=== PATIENT | male | born 1960 | race Caucasian/White ===

== ENCOUNTER 2017-10-17 10:30 | Emergency (ER) | payer SELFPAY ==
[~2017-10-17] VITALS: Ht 188 cm; Wt 100.0 kg
[~2017-10-17 10:30] MED LIST: CYCL-36 PO; DICL50 PO; HYDR-3533 PO
[2017-10-17 10:32] VITALS: BP 133/67; PULSE 81; RESP 14; TEMP 101.2; O2SAT 95
[2017-10-17 11:03] VITALS: BP 105/55; PULSE 56; RESP 18; TEMP 99.8; O2SAT 95
[2017-10-17] MEDS ORDERED: ACETAMINOPHEN 325 MG TAB PO ONE (11:15)
--- NOTE | 2017-10-17 11:20 | PD ---
HPI Chief Complaint: Cold / Flu Symptoms Time Seen by Provider: 11:05 Travel History International Travel<30 days: No Contact w/Intl Traveler<30days: No Traveled to known affect area: No History of Present Illness HPI 57yo M with no significant PMH presents to the ED with c/o cough, nasal congestion, throat pain, generalized body aches for 3 days. Started having fever today. Denies any chest pain, sob, n/v, abdominal pain, diarrhea, focal weakness or numbness. PFSH Past Medical History Diminished Hearing: Yes Medical other: Yes (BEAVER) Thyroid Disease: Yes ?: Not Social History Alcohol Use: No Tobacco Use: No Substance Use: No Allergies-Medications (Allergen,Severity, Reaction): Coded Allergies: Sulfa (Sulfonamide Antibiotics) (Unverified Allergy, Severe, ITCH, 05/06/17 ) penicillin G (Unverified Allergy, Severe, PASSED OUT, 05/06/17) Reported Meds & Prescriptions Reported Meds & Active Scripts Active Tylenol (Acetaminophen) 325 Mg Tab 650 Mg PO Q6H PRN Tamiflu (Oseltamivir Phosphate) 75 Mg Cap 75 Mg PO BID 5 Days Flexeril (Cyclobenzaprine HCl) 10 Mg Tab 10 Mg PO TID Voltaren (Diclofenac Sodium) 50 Mg Tabec 50 Mg PO TID Lortab 5 mg/325 mg (Hydrocodone/Acetaminophen 5 mg/325 mg) 1 Tab 1-2 Tab PO Q6H Review of Systems Except as stated in HPI: all other systems reviewed are Neg Physical Exam Narrative GENERAL: 57yo M in mild distress. SKIN: Focused skin assessment warm/dry. HEAD: Atraumatic. Normocephalic. EYES: Pupils equal and round. No scleral icterus. No injection or drainage. ENT: Throat: Clear. Uvula midline. No tonsillar exudate. NECK: Trachea midline. No JVD. CARDIOVASCULAR: Regular rate and rhythm. No murmur appreciated. RESPIRATORY: No accessory muscle use. Clear to auscultation. Breath sounds equal bilaterally. GASTROINTESTINAL: Abdomen soft, mild LLQ ttp. No rebound tenderness or guarding. MUSCULOSKELETAL: No obvious deformities. No clubbing. No cyanosis. No edema. NEUROLOGICAL: Awake and alert. No obvious cranial nerve deficits. Motor grossly within normal limits. Normal speech. PSYCHIATRIC: Appropriate mood and affect; insight and judgment normal. Data Data Last Documented VS Vital Signs Date Time Temp Pulse Resp B/P (MAP) Pulse Ox O2 Delivery O2 Flow Rate FiO2 10/17/17 11:06 61 18 94 Room Air 10/17/17 11:03 99.8 105/55 (72) Orders Orders Acetaminophen (Tylenol) (10/17/17 11:15) Influenzae A/B Antigen (10/17/17 11:12) Complete Blood Count With Diff (10/17/17 11:12) Basic Metabolic Panel (Bmp) (10/17/17 11:12) Lipase (10/17/17 11:12) Chest, Single Ap (10/17/17 ) Oseltamivir (Tamiflu) (10/17/17 13:15) Ed Discharge Order (10/17/17 13:50) Labs Laboratory Tests Test 10/17/17 11:21 White Blood Count 8.2 TH/MM3 Red Blood Count 4.39 MIL/MM3 Hemoglobin 13.4 GM/DL Hematocrit 39.6 % Mean Corpuscular Volume 90.0 FL Mean Corpuscular Hemoglobin 30.5 PG Mean Corpuscular Hemoglobin Concent 33.9 % Red Cell Distribution Width 14.0 % Platelet Count 110 TH/MM3 Mean Platelet Volume 8.9 FL Neutrophils (%) (Auto) 82.9 % Lymphocytes (%) (Auto) 9.5 % Monocytes (%) (Auto) 5.7 % Eosinophils (%) (Auto) 1.5 % Basophils (%) (Auto) 0.4 % Neutrophils # (Auto) 6.8 TH/MM3 Lymphocytes # (Auto) 0.8 TH/MM3 Monocytes # (Auto) 0.5 TH/MM3 Eosinophils # (Auto) 0.1 TH/MM3 Basophils # (Auto) 0.0 TH/MM3 CBC Comment DIFF FINAL Differential Comment Blood Urea Nitrogen 12 MG/DL Creatinine 1.31 MG/DL Random Glucose 106 MG/DL Calcium Level 8.4 MG/DL Sodium Level 141 MEQ/L Potassium Level 4.1 MEQ/L Chloride Level 106 MEQ/L Carbon Dioxide Level 27.1 MEQ/L Anion Gap 8 MEQ/L Estimat Glomerular Filtration Rate 57 ML/MIN Lipase 121 U/L MDM Medical Decision Making Medical Screen Exam Complete: Yes Emergency Medical Condition: Yes Interpretation(s) EKG: NSR 77bpm. Normal axis. Differential Diagnosis Influenza vs. pneumonia vs. viral syndrome Narrative Course 57yo M with flu like symptoms. Labs reviewed, no leukocytosis. Creatinine on the higher end of normal at 1.31, instructed pt to follow up with PMD. CXR negative. Positive for influenza A. Pt given tamiflu and acetaminophen. Pt is tolerating PO. Temperature improve from 101.2F to 99.8F. Return precautions given. Diagnosis Primary Impression: Influenza A Patient Instructions: General Instructions Departure Forms: Tests/Procedures Additional Instructions: Please follow up with your primary care physician in 2-3 days. Return to the ED if symptoms worsen. Med/Other Pt SpecificInfo: Prescription(s) given Scripts Acetaminophen (Tylenol) 325 Mg Tab 650 MG PO Q6H Y for PAIN SCALE 1 TO 4, #20 TAB 0 Refills Prov: Rebecca Michael DO 10/17/17 Oseltamivir (Tamiflu) 75 Mg Cap 75 MG PO BID for Mgmt Viral Infection for 5 Days, #10 CAP 0 Refills Prov: Rebecca Michael DO 10/17/17 Disposition: 01 DISCHARGE HOME Condition: Stable Rebecca Michael DO Oct 17, 2017 11:20
--- NOTE | 2017-10-17 11:41 | RADRPT ---
EXAM DATE/TIME: 10/17/2017 11:21 [facility] COMPARISON: CHEST SINGLE AP, July 28, 2014, 20:09. INDICATIONS : Flu like symptoms. MEDICAL HISTORY : None. SURGICAL HISTORY : None. ENCOUNTER: Initial ACUITY: 4 - 6 days PAIN SCORE: 0/10 LOCATION: Bilateral chest FINDINGS: A single view of the chest demonstrates the lungs to be symmetrically aerated without evidence of mas s, infiltrate or effusion. The cardiomediastinal contours are unremarkable. Osseous structures are intact. CONCLUSION: No acute disease. Miles Abarca Jr., MD on October 17, 2017 at 11:38 Board Certified Radiologist. This report was verified electronically.
[2017-10-17 11:45] LABS: AUTOMATED NEUTROPHIL # 6.8 TH/MM3 (1.8-7.7); BASOPHIL % 0.4 % (0.0-2.0); EOSINOPHIL # 0.1 TH/MM3 (0-0.4); EOSINOPHIL % 1.5 % (0.0-4.0); HEMATOCRIT 39.6 % (39.0-51.0); HEMOGLOBIN 13.4 GM/DL (13.0-17.0); LYMPH % 9.5 % (9.0-44.0); LYMPHOCYTE # 0.8 TH/MM3 (1.0-4.8); MEAN CORPUSCULAR HEMOGLOBIN 30.5 PG (27.0-34.0); MEAN CORPUSCULAR HGB CONC 33.9 % (32.0-36.0); MEAN PLATELET VOLUME 8.9 FL (7.0-11.0); MONO % 5.7 % (0.0-8.0); MONOCYTE # 0.5 TH/MM3 (0-0.9); NEUT % 82.9 % (16.0-70.0); PLATELET COUNT 110 TH/MM3 (150-450); RED BLOOD COUNT 4.39 MIL/MM3 (4.50-5.90); WHITE BLOOD COUNT 8.2 TH/MM3 (4.0-11.0)
[2017-10-17 12:13] LABS: BICARBONATE 27.1 MEQ/L (21.0-32.0); CALCIUM 8.4 MG/DL (8.5-10.1); CREATININE 1.31 MG/DL (0.60-1.30)
[2017-10-17] MEDS ORDERED: OSELTAMIVIR PHOSPHATE 75 MG CAP PO ONE (13:15)
[2017-10-17] MEDS ORDERED: OSEL75 PO (13:50)
[2017-10-17] MEDS ORDERED: TYLE325T PO (13:50)
--- NOTE | 2017-10-18 14:17 | EKG ---
Date Performed: 10/17/2017 Time Performed: 15:43:08 PTAGE: 57 years EKG: Sinus rhythm NONSPECIFIC T-WAVE ABNORMALITY BORDERLINE ECG PREVIOUS TRACING : 06/17/2006 14.57 Loss of the anterior R-wave compared to prior tracing. Clin ical correlation is recommended. DOCTOR: Jose Kidd Interpretating Date/Time 10/18/2017 14:17:25
== END 2017-10-17 14:27 | disposition home or self-care (01) ==
LOC: NEPE 10:30
DX: J09.X2 Influenza due to identified novel influenza A virus with other respiratory manifestations (principal); E07.9 Disorder of thyroid, unspecified; R94.31 Abnormal electrocardiogram [ECG] [EKG]; Z79.899 Other long term (current) drug therapy; Z88.2 Allergy status to sulfonamides; Z88.0 Allergy status to penicillin
CPT/HCPCS: 71045; 80048; 83690; 85025; 87804; 93005; 99284